=== PATIENT | male | born 1995 | race American Indian/Alaskan Native ===

== ENCOUNTER 2017-02-06 14:50 | Emergency (ER) | payer OTHER ==
[2017-02-06 16:14] VITALS: BP 147/91
[2017-02-06] MEDS: TYLENOL PO ONE ×2 (18:12→18:13)
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
== END 2017-02-06 19:11 | disposition home or self-care (01) ==
LOC: ED 14:50
DX: M25.561 Pain in right knee (principal); M54.9 Dorsalgia, unspecified; V89.2XXA Person injured in unspecified motor-vehicle accident, traffic, initial encounter; Y92.488 Other paved roadways as the place of occurrence of the external cause; Y93.89 Activity, other specified; Y99.8 Other external cause status
CPT/HCPCS: 99282

== ENCOUNTER 2018-05-27 17:30 | Emergency (ER) | payer SELFPAY ==
[2018-05-27 17:39] VITALS: BP 133/85
--- NOTE | 2018-05-27 21:26 | Emergency Department Report ---
ED Rash HPI - HPI Chief Complaint: Skin Rash Stated Complaint: RASH/ARM Time Seen by Provider: 05/27/18 21:18 Duration: 3 Days Location: Upper Extremities Rash Symptoms: Yes Itching Severity: moderate Other History: Rash raised skin tone pruritus 2 weeksnoted after working outside in his yard no drainage no fever no erythema ED Review of Systems ROS: Stated complaint: RASH/ARM Other details as noted in HPI Constitutional: denies: chills, fever Eyes: denies: eye pain, eye discharge, vision change ENT: denies: ear pain, throat pain Respiratory: denies: cough, shortness of breath, wheezing Cardiovascular: denies: chest pain, palpitations Endocrine: no symptoms reported Gastrointestinal: denies: abdominal pain, nausea, diarrhea Genitourinary: denies: urgency, dysuria Musculoskeletal: denies: back pain, joint swelling, arthralgia Skin: rash (bilat dorsal forearms ). denies: lesions Neurological: denies: headache, weakness, paresthesias Psychiatric: as per HPI Hematological/Lymphatic: denies: easy bleeding, easy bruising ED Past Medical Hx - Past Medical History Previous Medical History?: No - Surgical History Past Surgical History?: No - Social History Smoking Status: Never Smoker Substance Use Type: None - Medications Home Medications: Home Medications Medication Instructions Recorded Confirmed Last Taken Type Naproxen [Naprosyn TAB] 500 mg PO BID #30 tablet 02/06/17 Unknown Rx methOCARBAMOL [Robaxin TAB] 500 mg PO BID #30 tab 02/06/17 Unknown Rx Triamcinolone Acetonide 1 applicatio TP BID 14 Days #1 tube 05/27/18 Unknown Rx diphenhydrAMINE [Benadryl CAP] 25 mg PO Q8HR PRN #30 capsule 05/27/18 Unknown Rx predniSONE [Deltasone] 20 mg PO QDAY 5 Days #5 tab 05/27/18 Unknown Rx Rash Exam - Exam General: Vital signs noted. No distress. Alert and acting appropriately. HEENT: No Periorbital Edema, No Conjuctival Injection, No Chemosis, No Perioral Edema, No Tongue Edema, No Uvular Edema, No Compromised Airway, No Drooling Lungs: Yes Good Air Exchange (Normal Breath Sounds), No Wheezes, No Ronchi, No Stridor, No Cough, No Labored Respirations, No Retractions, No Use of Accessory Muscles, No Other Abnormal Lung Sounds Heart: Yes Regular, No Murmur Skin: Yes Urticarial Rash, Yes Maculopapular Rash, Yes Encrustations, No Excoriations, No Weeping, No Tenderness, No Erythema, No Edema, No Other Other: Positive: Abdomen Normal, Neurologic Normal, Musculoskeletal Normal ED Course Vital Signs 05/27/18 17:37 Temperature 98.2 F Pulse Rate 80 Respiratory 18 Rate Blood Pressure 133/85 O2 Sat by Pulse 99 Oximetry ED Medical Decision Making - Medical Decision Making His allergic reaction versus atopic dermatitis plan triamcinolone ointment and Benadryl prednisone 5 days patient will follow-up with [facility]3 days Critical care attestation.: If time is entered above; I have spent that time in minutes in the direct care of this critically ill patient, excluding procedure time. ED Disposition Clinical Impression: Atopic dermatitis Qualifiers: Atopic dermatitis type: atopic neurodermatitis Qualified Code(s): L20.81 - Atopic neurodermatitis Contact dermatitis Qualifiers: Contact dermatitis type: allergic Contact dermatitis trigger: other trigger Qualified Code(s): L23.89 - Allergic contact dermatitis due to other agents; L23.8 - Allergic contact dermatitis due to other agents Disposition: DC-01 TO HOME OR SELFCARE Is pt being admited?: No Does the pt Need Aspirin: No Condition: Good Instructions: Eczema (ED), Contact Dermatitis (ED) Prescriptions: diphenhydrAMINE [Benadryl CAP] 25 mg PO Q8HR PRN #30 capsule PRN Reason: Itching predniSONE [Deltasone] 20 mg PO QDAY 5 Days #5 tab Triamcinolone Acetonide 1 applicatio TP BID 14 Days #1 tube Referrals: [facility] [Outside] - 3-5 Days Forms: Work/School Release Form(ED) Time of Disposition: 21:30
== END 2018-05-27 21:45 | disposition home or self-care (01) ==
LOC: ED 17:30
DX: L20.81 Atopic neurodermatitis (principal); L23.89 Allergic contact dermatitis due to other agents
CPT/HCPCS: 99282